=== PATIENT | female | born 1935 | race Caucasian/White ===

== ENCOUNTER 2021-02-06 13:08 | Outpatient (RCR) | payer MEDICARE, OTHER, SELFPAY ==
[2021-02-06 13:24] VITALS: BP 199/92; PULSE 64; TEMP 36.2
--- NOTE | 2021-02-06 14:55 | HP.PCM_ITS ---
(1) Ulcer of left foot with fat layer exposed Status: Resolved Code(s): L97.522 - Non-pressure chronic ulcer of other part of left foot with fat layer exposed (2) Arthritis of left foot Status: Acute Code(s): M19.072 - Primary osteoarthritis, left ankle and foot (3) Walking difficulty due to ankle and foot Status: Acute Code(s): R26.2 - Difficulty in walking, not elsewhere classified (4) Edema Status: Acute Code(s): R60.9 - Edema, unspecified (5) Exostosis of left foot Status: Acute Code(s): M89.8X7 - Other specified disorders of bone, ankle and foot (6) Fixation hardware in foot Status: Acute Code(s): Z96.7 - Presence of other bone and tendon implants History of Present Illness Date of Service: 02/06/21 Chief Complaint: Left foot ulcer History of Wound: This 85-year-old female with longstanding history of chronic pain and other comorbidities including congestive heart failure, hypertension, chronic anticoagulation use, and arthritis has had ongoing left foot pain with prior surgical intervention. She had plates and screws placed in 2007 in a different state. She recently had some skin breakdown with some drainage in which she has been performing gauze dressings at home. She has been placing an aperture on this ulcer site to keep pressure off of it however reports she has severe pain in shoes. She thinks her hardware is broken and her foot is starting to collapse again. She is not interested in any surgical correction and wants to review all conservative options to save her foot. She denies recent injuries, redness, drainage. She denies fever, chill, nausea, vomiting. Past Medical History Past Medical History: CHF, hypertension, arthritis, pacemaker use. Primary care physician is Dr. Solorio Surgical History: - - bilateral foot Allergies/Adverse Reactions: Allergies cortisone Allergy (Mild, Verified 02/06/21 13:38) Other Home Medications: Ambulatory Orders Medication Instructions Recorded Apixaban [Eliquis] 2.5 mg PO BID 02/06/21 Calcium Carb,Gluc/Mag Ox,Gluc 1 each PO DAILY 02/06/21 [Calcium Magnesium Caplet] Carvedilol [Coreg] 12.5 mg PO BID 02/06/21 Etodolac 300 mg PO DAILY 02/06/21 Furosemide [Lasix] 40 mg PO BIDLX 02/06/21 Levothyroxine [Synthroid] 125 mcg PO QODAY 02/06/21 Multivit with Iron,Minerals 1 each PO DAILY 02/06/21 [Complete Senior] Sacubitril/Valsartan 97-103 mg 1 each PO DAILY 02/06/21 [Entresto 97 mg-103 mg Tablet] Ubidecarenone [Co Q10] 100 mg PO CONT 02/06/21 Vit B12/Intrinsic Fact/Folate 1 each PO DAILY 02/06/21 [Intrinsi [id number] Tablet] Vit B6/L. Mefolate/Me-B12/Ala 1 each PO DAILY 02/06/21 [Nufola Capsule] Lives: With Family Tobacco Use: Non-smoker Review of Systems Constitutional: Denies: Chills Cardiovascular: Denies: Claudication Respiratory: Denies: Shortness of Breath Gastrointestinal: Denies: Nausea, Vomiting Musculoskeletal: Reports: Foot Pain. Denies: Leg Pain Skin: Reports: Skin Changes, Wounds Neurological: Reports: Balance problems, Incoordination - Physical Exam Vital Signs Temp Pulse BP 97.2 F L 64 199/92 H 02/06/21 13:24 02/06/21 13:24 02/06/21 13:24 General: Alert, Oriented x3, Cooperative, No apparent distress HEENT: Atraumatic Extremities: No cyanosis, Capillary Refill Less than 3 Seconds, No Calf Tenderness, Edema - Mild, Peripheral Pulses Normal Skin: Ulcer/ Wound - There is full epithelialization to the plantar left foot without purulence, erythema, streaking, odor, necrosis or infection. Prior calluses noted to central plantar midfoot with evidence of prior aperture pad placement. There are no other ulcers or maceration Wound Measurements and Assessment WC - Nurse 1 - General Ulcer Measurement Start: 02/06/21 13:24 Freq: Status: Active Protocol: Activity Type Activity Date Activity User E-Sign Co-Sign Detail Recorded Client Recorded Date Recorded By Document 02/06/21 13:24 RB [id number] 02/06/21 13:43 RB 02/06/21 13:24 Wound Center Nurse 1 [Ulcer Assessment] #1 Left Plantar -Current Size (cm) - Length 0.1 -Current Size (cm) - Width 0.1 -Current Size (cm) - Depth 0.1 -Total Square Cm 0.01 -Exudate Amt None Present -Wound Margin Distinct, Outline Attached -Granulation Amt None Present (0 %) -Necrosis Amt None Present (0 %) -Texture (Nelida-wound Skin Appearance) Assessed, Scarring -Moisture (Nelida-wound Skin Appearance No Abnormality, ) Assessed -Color (Nelida-wound Skin Appearance) No Abnormality, Assessed -Temperature (Nelida-wound Skin No Abnormality Appearance) (Pt Warm) -Tenderness on Palpation (Nelida-wound No Skin Appearance) -Ulcer Cleansing Rinsed/ Irrigated with Saline -Foul Odor after Cleansing No -Anesthetic Used 4% Lidocaine Solution [Edema Assessment] -Right Calf (cm) 39 -Right Ankle (cm) 24.5 -Left Calf (cm) 39 -Left Ankle (cm) 25.5 - Nurse 2 - General Ulcer CM Notes Start: 02/06/21 13:24 Freq: Status: Active Protocol: Activity Type Activity Date Activity User E-Sign Co-Sign Detail Recorded Client Recorded Date Recorded By Document 02/06/21 14:26 KAYLIE [id number] 02/06/21 14:27 KAYLIE 02/06/21 14:26 Wound Center Nurse 2 [Procedure/Treatment] #1 Left Plantar -Correct Patient No -Correct Side, Site, Position No -Correct Procedure No -Procedure Performed No -Post Debridement (cm) - Length 0 -Post Debridement (cm) - Width 0 -Post Debridement (cm) - Depth 0 -Total Square (Post) (cm) 0 -Area of Debridement (cm) - Length 0 -Area of Debridement (cm) - Width 0 -Total Square (Area) (cm) 0 -Wound/Ulcer Outcome Healed- Epithelialized [See Physician Procedure note for Specifics] Pain Scale: 0-10 Numeric [Pain] -Is Patient Pain Free? Yes - Nurse 3 - General Ulcer D/C NN Start: 02/06/21 13:24 Freq: Status: Active Protocol: Activity Type Activity Date Activity User E-Sign Co-Sign Detail Recorded Client Recorded Date Recorded By Document 02/06/21 14:33 RUBEN [id number] 02/06/21 14:34 RUBEN 02/06/21 14:33 Wound Care Nurse 3 [Post Procedure Tolerated] -Treatment Response Procedure Tolerated Well Pain Scale: 0-10 Numeric [Pain] -Is Patient Pain Free? Yes - Visit Discharge [Visit Discharge Information] -Discharge Condition Stable -Ambulatory Status Ambulatory, Walker -Transportation Private Auto -Notes: Pt discharged, [facility] Musculoskeletal: No Tenderness to Palpation of Joints or Extremities, Muscle Wasting, - - Left foot: Midfoot collapse with palpable and visible prominent hardware. No laxity, calor, erythema or pain with attempted manipulation of the midfoot digits or hindfoot. Reduced ankle dorsiflexion bilateral Neurological: Sensory exam intact to light touch and pain Psych/Mental Status: Normal Affect, Appropriate Debridement Note Post-Debridement Measurements/Treatment - Nurse 2 - General Ulcer CM Notes Start: 02/06/21 13:24 Freq: Status: Active Protocol: Activity Type Activity Date Activity User E-Sign Co-Sign Detail Recorded Client Recorded Date Recorded By Document 02/06/21 14:26 KAYLIE [id number] 02/06/21 14:27 KAYLIE 02/06/21 14:26 Wound Center Nurse 2 #1 Left Plantar -Correct Patient No -Correct Side, Site, Position No -Correct Procedure No -Procedure Performed No -Post Debridement (cm) - Length 0 -Post Debridement (cm) - Width 0 -Post Debridement (cm) - Depth 0 -Total Square (Post) (cm) 0 -Area of Debridement (cm) - Length 0 -Area of Debridement (cm) - Width 0 -Total Square (Area) (cm) 0 -Wound/Ulcer Outcome Healed- Epithelialized Pain Scale: 0-10 Numeric Is Patient Pain Free? Yes - Nurse 3 - General Ulcer D/C NN Start: 02/06/21 13:24 Freq: Status: Active Protocol: Activity Type Activity Date Activity User E-Sign Co-Sign Detail Recorded Client Recorded Date Recorded By Document 02/06/21 14:33 RUBEN [id number] 02/06/21 14:34 DL 02/06/21 14:33 Wound Care Nurse 3 Treatment Response Procedure Tolerated Well Pain Scale: 0-10 Numeric Is Patient Pain Free? Yes - Visit Discharge Discharge Condition Stable Ambulatory Status Ambulatory, Walker Transportation Private Auto Notes: Pt discharged, [facility] Wound debrided: plantar foot Laterality: Left No debridement was completed today - There is no ulcer Assessment/Plan Active Problems Arthritis of left foot (Acute) Walking difficulty due to ankle and foot (Acute) Edema (Acute) Exostosis of left foot (Acute) Fixation hardware in foot (Acute) Assessment: No apparent ulcer plantar left foot. Mild edema bilateral lower extremities. Foot pain with prior surgical intervention and hardware irritation. Prior arthritis left foot Plan: I reviewed and discussed her case. She does not have an apparent open wound therefore debridement was not performed. I do not recommend dressing care. I advised her to continue with aperture offloading placement and felt pad was provided today. I recommended extra-depth shoes with accommodative insoles to better offload her recently healed ulcer site and prominent hardware. It is noted she is not interested in surgical removal of the hardware intervention that is invasive. I recommend she follows up with the foot and ankle center to obtain updated x-rays and to consider shoes versus orthotics versus customized bracing. To avoid aggravating activities. She was reassured she does not have an ulcer or wound open today. She is discharged from the wound healing center at this time. She was also advised to wear compression stocking. Note: [employer] speech recognition pharmaceutical specialty representative software was used to create portions of this document. Sound-alike and misspelled words, as well as other pharmaceutical specialty representative errors may be contained in the documentation. 45 minutes was spent on this encounter. This included face to face and non face to face care including preparing for the visit, reviewing the history, performing the exam, counseling and providing education to the patient, family, or caregiver, ordering medications/test/ procedures if indicated as documented, communicating with other healthcare providers, documenting information in the medical record, interpreting / sharing this information when indicated as documented, and care coordination. ----. macra 2020: Medications and allergies reviewed and reconciled. She is a current nontobacco user. Her BMI was not obtained because she refused today. Her blood pressure is elevated at 199/92. To follow-up with primary care physician. Diet and activity were reviewed to optimize blood pressure and to prevent future ulcer formation.
== END 2021-02-15 23:59 ==
LOC: WC 13:08
PROVIDERS: PCP Student in an Organized Health Care Education/Training Program; Referring Provider Student in an Organized Health Care Education/Training Program; Visit Provider Podiatrist
DX: R60.9 Edema, unspecified (principal); M19.072 Primary osteoarthritis, left ankle and foot; R26.2 Difficulty in walking, not elsewhere classified; M89.8X7 Other specified disorders of bone, ankle and foot; Z96.7 Presence of other bone and tendon implants; G89.29 Other chronic pain; I50.9 Heart failure, unspecified; Z79.01 Long term (current) use of anticoagulants; I11.0 Hypertensive heart disease with heart failure; S82.892D Other fracture of left lower leg, subsequent encounter for closed fracture with routine healing; Z79.899 Other long term (current) drug therapy; Z95.0 Presence of cardiac pacemaker
CPT/HCPCS: 99213; G0463

== ENCOUNTER → 2021-05-02 12:45 | Outpatient (CLI) | payer MEDICARE, OTHER, SELFPAY ==
--- NOTE | 2021-05-02 12:50 | RAD_ITS ---
STUDY: X-RAY - RIGHT FOOT CLINICAL: Female, 85 years old. Right foot pain. TECHNIQUE: 4 view(s) of the foot. COMPARISON: None. FINDINGS: Marked generalized osteopenia. Superior and inferior calcaneal spurs. Extensive fusion of the midfoot and tarsometatarsal articulations of the first and second digits. Marked osteoarthritic changes of the MTP and IP joints with dorsal subluxation of the phalanges in relation to the heads of the metatarsals. Marked hammertoe deformities. The soft tissue structures are unremarkable. RAD/Foot min 3 Views IMPRESSION: Marked osteopenia, postsurgical changes and osteoarthritic changes as described. No acute abnormality. Electronically Signed: Arnaud Galicia MD at 9:28 EDT , Service support ,
--- NOTE | 2021-05-02 12:50 | RAD_ITS ---
STUDY: X-RAY - LEFT FOOT CLINICAL: Female, 85 years old. Foot pain. TECHNIQUE: 4 view(s) of the foot. COMPARISON: None. FINDINGS: Marked generalized osteopenia. Large inferior calcaneal spur. Marked arthrosis of the midfoot with postsurgical changes of fusion of the midfoot and tarsometatarsal joints of all of the toes. 2 fractured screws of the medial plate and screw fixation. Severe osteoarthritic changes of the MTP and the joints with marked hammertoe deformities. Marked hallux valgus deformity of the first toe. The soft tissue structures are unremarkable. RAD/Foot min 3 Views IMPRESSION: Marked osteopenia with postsurgical changes and osteoarthritic changes. No evidence of erosive changes or acute abnormality. Electronically Signed: Arnaud Galicia MD at 9:30 EDT , Service support ,
== END ==
PROVIDERS: PCP Student in an Organized Health Care Education/Training Program; Referring Provider Podiatrist; Visit Provider Podiatrist
DX: M79.672 Pain in left foot (principal); M79.671 Pain in right foot
CPT/HCPCS: 73630